=== PATIENT | female | born 1995 | race Caucasian/White ===

== ENCOUNTER 2018-04-07 08:13 | Outpatient (CLI) | payer OTHER ==
[~2018-04-07] VITALS: Ht 152.4 cm; Wt 62.6 kg
== END 2018-04-07 08:25 | disposition home or self-care (01) ==
LOC: OFIC 805 08:13
DX: R22.1 Localized swelling, mass and lump, neck (principal); J31.0 Chronic rhinitis

== ENCOUNTER 2018-04-19 07:28 | Outpatient (CLI) | payer OTHER | END 2018-04-19 07:33 | disposition home or self-care (01) | LOC: SONOGRAMA 07:28 | DX: R22.2 Localized swelling, mass and lump, trunk (principal) ==

== ENCOUNTER 2018-05-19 07:46 | Outpatient (CLI) | payer OTHER ==
[~2018-05-19] VITALS: Ht 152.4 cm; Wt 62.6 kg
== END 2018-05-19 14:44 | disposition home or self-care (01) ==
LOC: OFIC 805 07:46
DX: R22.1 Localized swelling, mass and lump, neck (principal); J31.0 Chronic rhinitis; R59.0 Localized enlarged lymph nodes

== ENCOUNTER 2018-07-14 07:53 | Outpatient (CLI) | payer OTHER ==
[~2018-07-14] VITALS: Ht 152.4 cm; Wt 62.6 kg
== END 2018-07-14 08:10 | disposition home or self-care (01) ==
LOC: OFIC 805 07:53
DX: R22.1 Localized swelling, mass and lump, neck (principal); J31.0 Chronic rhinitis; R59.0 Localized enlarged lymph nodes

== ENCOUNTER 2019-01-26 08:14 | Outpatient (CLI) | payer OTHER ==
[~2019-01-26] VITALS: Ht 152.4 cm; Wt 62.6 kg
== END 2019-01-26 08:30 | disposition home or self-care (01) ==
LOC: OFIC 805 08:14
DX: J31.0 Chronic rhinitis (principal); R22.1 Localized swelling, mass and lump, neck; R59.9 Enlarged lymph nodes, unspecified

== ENCOUNTER 2021-03-28 08:04 | Outpatient (CLI) | payer OTHER | END 2021-03-28 08:10 | disposition home or self-care (01) | LOC: NUCLEAR 08:04 | PROVIDERS: ATTEND Internal Medicine Hematology & Oncology | DX: C50.511 Malignant neoplasm of lower-outer quadrant of right female breast (principal); N63.20 Unspecified lump in the left breast, unspecified quadrant; D47.Z2 Castleman disease | CPT/HCPCS: 78815; A9552 ==

== ENCOUNTER 2021-05-21 07:50 | Day surgery (SDC) | payer OTHER ==
[~2021-05-21 07:50] MED LIST: LEVO-T25 MCG PO; MILLIPRED5 MG PO; MULTIPLE VITAM1 EAC2 PO; OMEPRAZOLE40 MG PO; ZYRTEC10 M3 PO
== END 2021-05-21 16:35 | disposition home or self-care (01) ==
LOC: CIR.AMB 07:50
PROVIDERS: ATTEND Specialist
DX: C50.511 Malignant neoplasm of lower-outer quadrant of right female breast (principal); Z20.822 Contact with and (suspected) exposure to COVID-19
CPT/HCPCS: 36561; C1751

== ENCOUNTER 2021-07-25 06:03 | Day surgery (SDC) | payer OTHER | END 2021-07-25 18:00 | disposition home or self-care (01) | LOC: CIR.AMB 06:03 | PROVIDERS: ATTEND Surgery | DX: C50.511 Malignant neoplasm of lower-outer quadrant of right female breast (principal); C50.812 Malignant neoplasm of overlapping sites of left female breast; Z90.13 Acquired absence of bilateral breasts and nipples; Z20.822 Contact with and (suspected) exposure to COVID-19 ==

== ENCOUNTER 2022-10-16 07:45 | Outpatient (CLI) | payer OTHER | END 2022-10-16 08:00 | disposition home or self-care (01) | LOC: NUCLEAR 07:45 | PROVIDERS: ATTEND Internal Medicine Hematology & Oncology | DX: C50.412 Malignant neoplasm of upper-outer quadrant of left female breast (principal); D47.Z2 Castleman disease ==